=== PATIENT | female | born 1995 | race African-American/Black ===

== ENCOUNTER 2017-02-20 18:32 | Emergency (ER) | payer BC ==
[~2017-02-20] VITALS: Ht 152.4 cm; Wt 65.5 kg
[2017-02-20 18:34] VITALS: BP 159/82; PULSE 92; TEMP 99
[2017-02-20] MEDS ORDERED: SPRINTEC 35 MCG1 TAB PO (18:38)
[2017-02-20] MEDS ORDERED: ULTRAM 50MG TAB50 MG PO (19:41)
== END 2017-02-20 20:06 | disposition home or self-care (01) ==
LOC: COL.ER 18:32
DX: K08.89 Other specified disorders of teeth and supporting structures (principal)